=== PATIENT | male | born 1950 | race Two or more races ===

== ENCOUNTER 2020-02-09 18:01 | Emergency (ER) | payer SELFPAY ==
[~2020-02-09] VITALS: Ht 162.6 cm; Wt 75.0 kg
[2020-02-09 20:07] LABS: BASO % 1 % (0-3); EOS # 0.1 x10^3/uL (0.0-0.7); EOS % 1 % (0-3); HEMATOCRIT 45.2 % (39.0-53.0); HEMOGLOBIN 15.8 g/dL (13.0-17.5); LYMPH # 2.2 x10^3/uL (1.0-4.8); LYMPH % 30 % (24-48); MEAN CORPUSCULAR HEMOGLOBIN 32 pg (25-35); MEAN CORPUSCULAR HGB CONC 35 g/dL (31-37); MEAN CORPUSCULAR VOLUME 91 fL (79-100); MONO # 0.6 x10^3/uL (0.0-1.1); MONO % 8 % (0-9); NEUT # 4.4 x10^3/uL (1.8-7.7); NEUT % 60 % (31-73); PLATELET COUNT 260 x10^3/uL (140-400); RED BLOOD COUNT 4.99 x10^6/uL (4.30-5.70); RED CELL DISTRIBUTION WIDTH 13.6 % (11.5-14.5); WHITE BLOOD COUNT 7.3 x10^3/uL (4.0-11.0)
[2020-02-09 20:09] LABS: BILIRUBIN,URINE NEGATIVE (NEG); CLARITY,URINE CLEAR; COLOR,URINE YELLOW; NITRITE,URINE NEGATIVE (NEG); PH,URINE 6.5 (<5.0-8.0); PROTEIN,URINE NEGATIVE (NEG-TRACE)
[2020-02-09 20:12] LABS: BACTERIA,URINE 0 /HPF (0-FEW); RBC,URINE 0 /HPF (0-2); WBC,URINE 0 /HPF (0-4)
[2020-02-09] MEDS: ONDANSETRON PF 4 MG/2 ML VIAL. IVP ONE (20:18)
[2020-02-09] MEDS: MORPHINE SULFATE 2 MG/ML VIAL. IV ONE (20:18)
[2020-02-09 20:21] LABS: CALCIUM 8.9 mg/dL (8.5-10.1); CREATININE 0.8 mg/dL (0.7-1.3); GFR 96.4; POTASSIUM 3.8 mmol/L (3.5-5.1)
[2020-02-09] MEDS: IV NORMAL SALINE 1000ML BAG 1,000 ML IV ONE (20:23)
[2020-02-09 20:25] LABS: ALBUMIN 4.2 g/dL (3.4-5.0); TOTAL BILIRUBIN 0.6 mg/dL (0.2-1.0); TOTAL PROTEIN 8.5 g/dL (6.4-8.2)
--- NOTE | 2020-02-09 20:29 | PHYS DOC ---
Past Medical History Past Medical History: No Pertinent History Smoking Status: Never Smoker Alcohol Use: Occasionally Additional Information: states he drinks beer daily. Adult General Chief Complaint Chief Complaint: ABDOMINAL PAIN HPI HPI Patient is a 69 year old male who presents with left lower abdominal pain. States he had this pain for the last 3 days. States the pain is been present during the day, however much worse at night. States his been constant in the night. He has tried some Tylenol for discomfort, however it has not helped very much. States he is also having some pain in his left lower back. Denies fever. Denies nausea, vomiting, denies any urine changes. Does state he has noticed his urine to be little bit darker over the last couple days since he has had the discomfort. She has no recent trauma. There is no prior surgery. Last bowel movement this morning. Denies any blood in stool Review of Systems Review of Systems Constitutional: Denies fever or chills [] Eyes: Denies change in visual acuity, redness, or eye pain [] HENT: Denies nasal congestion or sore throat [] Respiratory: Denies cough or shortness of breath [] Cardiovascular: No additional information not addressed in HPI [] GI: Reports left lower abdominal pain, with nausea. Denies vomiting. Denies diarrhea. Denies constipation. Denies bloody stools : Denies dysuria or hematuria does report he has had some darkened urine over the last 2 to 3 days. [] Musculoskeletal: Complains of pain to left lower back. Denies any joint pain or body aches Integument: Reports rash to left lower back [] Neurologic: Denies headache, focal weakness or sensory changes [] Endocrine: Denies polyuria or polydipsia [] All other systems were reviewed and found to be within normal limits, except as documented in this note. Current Medications Current Medications Current Medications Medications (Trade) Dose Ordered Sig/Senait Start Time Stop Time Status Last Admin Dose Admin Info (CONTRAST GIVEN -- Rx MONITORING) 1 each PRN DAILY PRN 02/09/20 20:45 02/11/20 20:44 Iohexol (Omnipaque 300 Mg/ml) 75 ml 1X ONCE 02/09/20 20:30 02/09/20 20:33 DC 02/09/20 20:38 75 ML Morphine Sulfate (Morphine Sulfate) 2 mg 1X ONCE 3/11/20 19:45 02/09/20 19:48 DC 02/09/20 20:18 2 MG Ondansetron HCl (Zofran) 4 mg 1X ONCE 02/09/20 19:45 02/09/20 19:48 DC 02/09/20 20:18 4 MG Sodium Chloride 1,000 ml @ 1,000 mls/hr 1X ONCE 02/09/20 19:45 02/09/20 20:44 DC 02/09/20 20:23 1,000 MLS/HR Allergies Allergies Allergies Coded Allergies Type Severity Reaction Last Updated Verified No Known Drug Allergies 02/09/20 No Physical Exam Physical Exam Constitutional: Well developed, well nourished, no acute distress, non-toxic appearance. [] HENT: Normocephalic, atraumatic, oropharynx moist, no oral exudates, nose normal. [] Eyes: PERRLA, EOMI, conjunctiva normal, no discharge. [] Neck: Normal range of motion, no tenderness, supple, no stridor. [] Cardiovascular:Heart rate regular rhythm, no murmur [] Lungs & Thorax: Bilateral breath sounds clear to auscultation [] Abdomen: Bowel sounds normal, soft, LLQ tenderness, no masses, no pulsatile masses. [] Skin: Warm, dry, no erythema, cluster vescicles to left lower back not crossing midline. [] Back: tenderness near lesions, no CVA tenderness. [] Extremities: No tenderness, no cyanosis, no clubbing, ROM intact, no edema. [] Neurologic: Alert and oriented X 3, normal motor function, normal sensory function, no focal deficits noted. [] Psychologic: Affect normal, judgement normal, mood normal. [] Current Patient Data Vital Signs Vital Signs Date Time Temp Pulse Resp B/P (MAP) Pulse Ox O2 Delivery O2 Flow Rate FiO2 02/09/20 20:18 16 Room Air 02/09/20 19:15 98.0 78 168/101 (123) 98.0 Lab Values Laboratory Tests Test 02/09/20 19:58 White Blood Count 7.3 x10^3/uL (4.0-11.0) Red Blood Count 4.99 x10^6/uL (4.30-5.70) Hemoglobin 15.8 g/dL (13.0-17.5) Hematocrit 45.2 % (39.0-53.0) Mean Corpuscular Volume 91 fL (79-100) Mean Corpuscular Hemoglobin 32 pg (25-35) Mean Corpuscular Hemoglobin Concent 35 g/dL (31-37) Red Cell Distribution Width 13.6 % (11.5-14.5) Platelet Count 260 x10^3/uL (140-400) Neutrophils (%) (Auto) 60 % (31-73) Lymphocytes (%) (Auto) 30 % (24-48) Monocytes (%) (Auto) 8 % (0-9) Eosinophils (%) (Auto) 1 % (0-3) Basophils (%) (Auto) 1 % (0-3) Neutrophils # (Auto) 4.4 x10^3/uL (1.8-7.7) Lymphocytes # (Auto) 2.2 x10^3/uL (1.0-4.8) Monocytes # (Auto) 0.6 x10^3/uL (0.0-1.1) Eosinophils # (Auto) 0.1 x10^3/uL (0.0-0.7) Basophils # (Auto) 0.0 x10^3/uL (0.0-0.2) Urine Collection Type Unknown Urine Color Yellow Urine Clarity Clear Urine pH 6.5 (<5.0-8.0) Urine Specific [place] 1.010 (1.000-1.030) Urine Protein Negative mg/dL (NEG-TRACE) Urine Glucose (UA) Negative mg/dL (NEG) Urine Ketones (Stick) Negative mg/dL (NEG) Urine Blood Negative (NEG) Urine Nitrite Negative (NEG) Urine Bilirubin Negative (NEG) Urine Urobilinogen Dipstick 1.0 mg/dL (0.2 mg/dL) Urine Leukocyte Esterase Negative (NEG) Urine RBC 0 /HPF (0-2) Urine WBC 0 /HPF (0-4) Urine Bacteria 0 /HPF (0-FEW) Sodium Level 139 mmol/L (136-145) Potassium Level 3.8 mmol/L (3.5-5.1) Chloride Level 102 mmol/L (98-107) Carbon Dioxide Level 28 mmol/L (21-32) Anion Gap 9 (6-14) Blood Urea Nitrogen 5 mg/dL (8-26) L Creatinine 0.8 mg/dL (0.7-1.3) Estimated GFR (Cockcroft-Gault) 96.4 BUN/Creatinine Ratio 6 (6-20) Glucose Level 94 mg/dL (70-99) Calcium Level 8.9 mg/dL (8.5-10.1) Magnesium Level 2.0 mg/dL (1.8-2.4) Total Bilirubin 0.6 mg/dL (0.2-1.0) Aspartate Amino Transferase (AST) 60 U/L (15-37) H Alanine Aminotransferase (ALT) 81 U/L (16-63) H Alkaline Phosphatase 71 U/L (46-116) Troponin I Quantitative < 0.017 ng/mL (0.000-0.055) Total Protein 8.5 g/dL (6.4-8.2) H Albumin 4.2 g/dL (3.4-5.0) Albumin/Globulin Ratio 1.0 (1.0-1.7) Lipase 98 U/L (73-393) Laboratory Tests 02/09/20 19:58 Laboratory Tests 02/09/20 19:58 EKG EKG [] Radiology/Procedures Radiology/Procedures []HISTORY: Left side abdominal pain. Contrast: 75 mL Omnipaque 300 intravenous contrast. Abdomen findings: Lung bases unremarkable. Lumbar disc disease and arthritic change no spinal canal and neural foraminal stenoses L3-4 through L5-S1. Kidneys, adrenal glands, pancreas, spleen, liver and gallbladder are unremarkable. 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 There is mild volume of stool. No dilated bowel loops to suggest obstruction or inflammatory change. Aortoiliac artery calcified plaque. No abdominal fluid or adenopathy. Pelvis findings: Bladder, prostate, rectum and bones are unremarkable. No pelvic fluid or adenopathy. IMPRESSION: No acute process. Electronically signed by: Gt Arnold MD (02/09/2020 9:05 PM) UI Course & Med Decision Making Course & Med Decision Making Pertinent Labs and Imaging studies reviewed. (See chart for details) [Discussed findings with patient and family, with findings of shingles, unremarkable abdominal imaging and unremarkable lab imaging. Believe location of discomfort due to dermatome localization, with discomfort shooting down dermatome anteriorly. Will provide prescription for antiviral. Discussed loca tions for patient to follow-up with primary care, as he has no primary care provider here. Discussed monitoring blood pressure and discussing this with primary care. Patient found with no further questions or concerns] Lesa Disclaimer Lesa Disclaimer This electronic medical record was generated, in whole or in part, using a voice recognition dictation system. Departure Departure Impression: Primary Impression: Shingles rash Additional Impression: Abdominal pain Disposition: HOME, SELF-CARE Condition: GOOD Patient Instructions: Shingles, [id number] Additional Instructions: As we discussed, make sure you take the medications as prescribed. You may also take some Tylenol or ibuprofen as needed for discomfort. Try to get into 1 of the clinics which we had discussed to follow-up on your rash, as well as to reevaluate your blood pressure. / Herald hablemos, hargrove que dorene el medicacion riddhi estaba recetada. Tambien puede viri Tylenol o Ibuprofen para dolor si quieres. Intenta ir miguel de los clinicas que hablemos antes, para reevaluar los sintomas de hoy y evaluar ontiveros presion elevada. [facility] tenga clinica en y [place] en [place]. [facility] clinica esta en y . Mas cerca ontiveros casa hay clinica en [address], el [facility] y puede preguntar ellos de los precios o si atenden en espanol. Scripts Valacyclovir Hcl (VALACYCLOVIR) 1,000 Mg Tablet 1 TAB PO TID, #21 TAB Prov: MARY LOBATO E AUTHORIZATION SPECIALIST 02/09/20 Problem Qualifiers Primary Impression: Shingles rash Herpes zoster complications: without complications Qualified Codes: B02.9 - Zoster without complications Additional Impression: Abdominal pain Abdominal location: left lower quadrant Qualified Codes: R10.32 - Left lower quadrant pain MARY LOBATO E AUTHORIZATION SPECIALIST Feb 09, 2020 20:29
[2020-02-09] MEDS: IOHEXOL 300 MG/ML 100ML VIAL. IV ONE (20:38)
[2020-02-09] MEDS ORDERED: CONTRAST GIVEN. MC PRN (20:45)
--- NOTE | 2020-02-09 21:08 | RAD ---
CT abdomen and pelvis with contrast PQRS statement: CT scans at this facility use dose reduction including either automated exposure control, iterative reconstructions, and /or weight based radiation dosing via mA and kV modification when appropriate to reduce radiation dose to as low as reasonably achievable. HISTORY: Left side abdominal pain. Contrast: 75 mL Omnipaque 300 intravenous contrast. Abdomen findings: Lung bases unremarkable. Lumbar disc disease and arthritic change no spinal canal and neural foraminal stenoses L3-4 through L5-S1. Kidneys, adrenal glands, pancreas, spleen, liver and gallbladder are unremarkable. 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 There is mild volume of stool. No dilated bowel loops to suggest obstruction or inflammatory change. Aortoiliac artery calcified plaque. No abdominal fluid or adenopathy. Pelvis findings: Bladder, prostate, rectum and bones are unremarkable. No pelvic fluid or adenopathy. IMPRESSION: No acute process. Electronically signed by: Gt Arnold MD (02/09/2020 9:05 PM) [id number]
[2020-02-09] MEDS ORDERED: VALA10008 PO (21:30)
[2020-02-09 22:00] VITALS: BP 172/88
[2020-02-09] MEDS: valACYclovir 500 MG TABLET. PO ONE (22:05)
== END 2020-02-09 22:17 | disposition home or self-care (01) ==
LOC: ER 18:01
DX: B02.9 Zoster without complications (principal); R10.32 Left lower quadrant pain; M54.5 Low back pain; F10.10 Alcohol abuse, uncomplicated
CPT/HCPCS: 36415; 74177; 80053; 81001; 83690; 83735; 84484; 85025; 96374; 96375; 99285; J2270; J2405; J7030; Q9967